=== PATIENT | male | born 1985 | race Caucasian/White ===

== ENCOUNTER 2018-12-07 23:41 | Emergency (ER) | payer BC ==
[2018-12-07 23:45] VITALS: TEMP 98.6
--- NOTE | 2018-12-08 00:22 | XR ---
EXAM: XR Chest, 2 Views CLINICAL HISTORY: Pain TECHNIQUE: Frontal and lateral views of the chest. COMPARISON: 01/08/16 FINDINGS: Lungs: Unremarkable. No consolidation. Pleural space: Unremarkable. No pneumothorax. Heart: Unremarkable. No cardiomegaly. Mediastinum: Unremarkable. Bones/joints: Unremarkable. IMPRESSION: No acute findings or substantial change
[2018-12-08 00:47] VITALS: BP 122/94; PULSE 78; RESP 16
--- NOTE | 2018-12-08 00:50 | ED ---
SOB HPI - General Chief Complaint: Shortness of Breath Stated Complaint: WILLIAM Time Seen by Provider: 12/07/18 23:48 Source: patient Mode of arrival: ambulatory Limitations: no limitations - History of Present Illness Initial Comments: 33-year-old male patient presents to the emergency department today for evaluation of shortness of breath and cough as been present for the last year. Patient states this worsens when he is at work and seems to resolve when he is at home. Patient denies any fevers or chills with this. Denies any hemoptysis. States he does occasionally cough up yellow sputum. 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 Patient states he does have an appointment with his physician on Friday but needed a work note so he presented here for evaluation. Patient denies any recent rash, chest pain, abdominal pain, nausea, vomiting, diarrhea, constipation, back pain, numbness, tingling, dizziness, weakness, hematuria, dysuria, urinary urgency, urinary frequency, headache, visual changes, or any other complaints. - Related Data Home Medications Medication Instructions Recorded Confirmed Lisinopril [Zestril] 10 mg PO DAILY 07/29/14 07/29/14 Previous Rx's Medication Instructions Recorded Albuterol Sulfate [Proair Hfa] 1 - 2 puff INHALATION Q6HR PRN #1 12/08/18 inhaler methylPREDNISolone [Medrol Dose 4 mg PO DIRECTED #1 pack 12/08/18 Pack] Allergies Allergy/AdvReac Type Severity Reaction Status Date / Time No Known Allergies Allergy Verified 12/07/18 23:45 Review of Systems ROS Statement: Those systems with pertinent positive or pertinent negative responses have been documented in the HPI. ROS Other: All systems not noted in ROS Statement are negative. Past Medical History Past Medical History: Hypertension Additional Past Medical History / Comment(s): "breathing trouble" History of Any Multi-Drug Resistant Organisms: None Reported Past Surgical History: No Surgical Hx Reported Past Psychological History: No Psychological Hx Reported Smoking Status: Never smoker Past Alcohol Use History: Occasional Past Drug Use History: None Reported General Exam Limitations: no limitations General appearance: alert, in no apparent distress, other (Physical well- developed, well-nourished adult male patient in no acute distress. Vital signs upon presentation are temperature 98.6F, pulse 79, respirations 22, blood pressure 158/104, pulse ox 98% on room air.) Eye exam: Present: normal appearance, PERRL, EOMI. Absent: scleral icterus, conjunctival injection, periorbital swelling ENT exam: Present: normal exam, normal oropharynx, mucous membranes moist Respiratory exam: Present: normal lung sounds bilaterally. Absent: respiratory distress, wheezes, rales, rhonchi, stridor Cardiovascular Exam: Present: regular rate, normal rhythm, normal heart sounds. Absent: systolic murmur, diastolic murmur, rubs, gallop, clicks Neurological exam: Present: alert, oriented X3, CN II-XII intact Psychiatric exam: Present: normal affect, normal mood Skin exam: Present: warm, dry, intact, normal color. Absent: rash Course Vital Signs 12/07/18 12/08/18 23:41 00:46 Temperature 98.6 F Pulse Rate 79 78 Respiratory 22 16 Rate Blood Pressure 158/104 122/94 O2 Sat by Pulse 98 97 Oximetry Medical Decision Making - Medical Decision Making 33-year-old male patient presents to the emergency department today for evaluation of shortness of breath and cough that has been going on for one year. Patient states this seems to worsen when he is at work and then improves when he is at home. Physical examination is unremarkable. Lungs are clear to auscultation with good air movement. No wheezing. Vital signs are stable with good oxygen saturation. Chest x-ray showed no acute cardio pulmonary process. EKG showed normal sinus rhythm. I did discuss findings and results with the patient. We did discuss bronchitis as a cause for her symptoms. He'll be started on a Medrol Dosepak and given Pro Air inhaler. He is instructed to f ollow-up with his primary care physician as he has planned on Friday. Return parameters discussed in detail. He verbalizes understanding and agrees with this plan. - EKG Data -: EKG Interpreted by Me EKG Comments: EKG obtained at 00 45 shows normal sinus rhythm with a ventricular rate of 82, RI interval 146, QRS duration 96, QT 352, QTc 411. No evidence of ST elevation or depression. - Radiology Data Radiology results: report reviewed, image reviewed Two-view x-ray of the chest is obtained. Report was reviewed in its entirety. Impression by Dr. Aguirre shows no acute findings or substantial change. Disposition Clinical Impression: Bronchitis Disposition: HOME SELF-CARE Condition: Good Instructions (If sedation given, give patient instructions): Chronic Bronchitis (ED) Additional Instructions: Follow up with your primary care physician for recheck in 1-2 days. Return to the emergency department immediately for any new, worsening, or concerning symptoms. Prescriptions: methylPREDNISolone [Medrol Dose Pack] 4 mg PO DIRECTED #1 pack Albuterol Sulfate [Proair Hfa] 1 - 2 puff INHALATION Q6HR PRN #1 inhaler PRN Reason: Shortness Of Breath Is patient prescribed a controlled substance at d/c from ED?: No Referrals: Misti Wallace DO [Primary Care Provider] - 1-2 days Time of Disposition: 00:50
== END 2018-12-08 00:55 | disposition home or self-care (01) ==
LOC: EC 23:41
DX: J40 Bronchitis, not specified as acute or chronic (principal); I10 Essential (primary) hypertension; Z79.899 Other long term (current) drug therapy
CPT/HCPCS: 71046; 93005; 99285

== ENCOUNTER 2021-08-09 14:42 | Emergency (ER) | payer BC, OTHER ==
[2021-08-09 14:54] VITALS: RESP 18; TEMP 97.5
[2021-08-09] MEDS ORDERED: KETOROLAC 15 MG/ML 1 ML VIAL IVP STA (15:09)
--- NOTE | 2021-08-09 15:12 | ED ---
Chest Pain HPI - General Chief Complaint: Chest Pain Stated Complaint: Chest Pain Time Seen by Provider: 08/09/21 14:54 Source: patient Mode of arrival: ambulatory Limitations: no limitations - History of Present Illness Initial Comments: 35-year-old male with a benign history but a positive family history of heart disease who states 2 weeks ago he started developing upper chest pain pain between her shoulder blades he states that sharp in nature 9-10/10 severity is constant sometimes gets worse with certain movements but no overt fevers chills nausea vomiting sweats no palpitations no overt radiation other than that mentioned above no cough no phlegm production. He states he says quite a bit it happened while he was sitting. Because his family history he did follow-up with the clinic who sent him here for further evaluation. No other current complaints or modifying factors MD Complaint: chest pain - Related Data Home Medications Medication Instructions Recorded Confirmed Rosuvastatin [Crestor] 10 mg PO DAILY 08/09/21 08/09/21 Semaglutide [Ozempic] 0.25 mg SQ Q7D 08/09/21 08/09/21 amLODIPine BESYLATE/BENAZEPRIL 1 cap PO DAILY 08/09/21 08/09/21 [amLODIPine BESYLATE/BENAZEPRIL 5-10 MG] Previous Rx's Medication Instructions Recorded Cyclobenzaprine [Flexeril] 10 mg PO TID #14 tab 08/09/21 Ibuprofen 800 mg PO Q6HR PRN #20 tablet 08/09/21 Allergies Allergy/AdvReac Type Severity Reaction Status Date / Time No Known Allergies Allergy Verified 08/09/21 16:01 Review of Systems ROS Statement: Those systems with pertinent positive or pertinent negative responses have been documented in the HPI. ROS Other: All systems not noted in ROS Statement are negative. EKG Findings - EKG Results: EKG: interpreted by DUSTIN, sinus rhythm (Sinus rhythm 81. Interval 148 QRS duration 94 QT since QTC 358/4:[address] configuration consistent with early repolarization) Past Medical History Past Medical History: Hypertension Additional Past Medical History / Comment(s): "breathing trouble" History of Any Multi-Drug Resistant Organisms: None Reported Past Surgical History: No Surgical Hx Reported Past Psychological History: No Psychological Hx Reported Past Alcohol Use History: Occasional Past Drug Use History: None Reported General Exam - General Exam Comments Initial Comments: This is a well-developed well-nourished awake alert oriented 3 male Limitations: no limitations General appearance: alert, in no apparent distress Head exam: Present: atraumatic, normocephalic, normal inspection Eye exam: Present: normal appearance, PERRL, EOMI. Absent: scleral icterus, conjunctival injection, periorbital swelling ENT exam: Present: normal exam, mucous membranes moist Neck exam: Present: normal inspection, full ROM, other. Absent: tenderness, meningismus, lymphadenopathy Respiratory exam: Present: normal lung sounds bilaterally. Absent: respiratory distress, wheezes, rales, rhonchi, stridor, chest wall tenderness (No stridor JVD or bruits) Cardiovascular Exam: Present: regular rate, normal rhythm, normal heart sounds. Absent: systolic murmur, diastolic murmur, rubs, gallop, clicks GI/Abdominal exam: Present: soft, normal bowel sounds. Absent: distended, te nderness, guarding, rebound, rigid, bruit, pulsatile mass Extremities exam: Present: normal inspection, full ROM, normal capillary refill. Absent: tenderness, pedal edema, joint swelling, calf tenderness Back exam: Present: normal inspection Neurological exam: Present: alert, oriented X3, CN II-XII intact Psychiatric exam: Present: normal affect, normal mood Skin exam: Present: warm, dry, intact, normal color. Absent: rash Course Vital Signs 08/09/21 08/09/21 14:49 15:53 Temperature 97.5 F L Pulse Rate 79 82 Respiratory 18 18 Rate Blood Pressure 168/124 141/73 O2 Sat by Pulse 99 97 Oximetry Chest Pain MDM - MDM Imaging reviewed no acute findings. The patient is feeling improved the presentation appears be consistent with musculoskeletal pain in the records were all within normal limits his pain did improve after Toradol. He'll be discharged on NSAIDs as well as muscle relaxers he is a follow-up with Dr. Munguia and return when necessary I would recommend an outpatient stress test. Disposition Clinical Impression: Chest wall syndrome Disposition: HOME SELF-CARE Condition: Good Instructions (If sedation given, give patient instructions): Chest Wall Pain (ED) Additional Instructions: Recommended outpatient stress test that can be set up by her doctor Prescriptions: Cyclobenzaprine [Flexeril] 10 mg PO TID #14 tab Ibuprofen 800 mg PO Q6HR PRN #20 tablet PRN Reason: Pain Is patient prescribed a controlled substance at d/c from ED?: No Referrals: Gonzalo Munguia MD [Primary Care Provider] - 1-2 days
[2021-08-09 15:27] LABS: Basophils # (A) 0.1 k/uL (0-0.2); Basophils % (A) 1 %; Eosinophils # (A) 0.2 k/uL (0-0.7); Eosinophils % (A) 2 %; HCT 44.8 % (39.0-53.0); HGB 15.3 gm/dL (13.0-17.5); Lymphocytes # (A) 2.4 k/uL (1.0-4.8); Lymphocytes % (A) 28 %; MCH 30.6 pg (25.0-35.0); MCHC 34.2 g/dL (31.0-37.0); MCV 89.7 fL (80.0-100.0); Mean Platelet Volume 7.7; Monocytes # (A) 0.5 k/uL (0-1.0); Monocytes % (A) 6 %; Neutrophils # (A) 5.2 k/uL (1.3-7.7); Neutrophils % (A) 61 %; Platelet Count 288 k/uL (150-450); RDW 12.6 % (11.5-15.5); WBC 8.6 k/uL (3.8-10.6)
--- NOTE | 2021-08-09 15:31 | XR ---
EXAMINATION TYPE: XR chest 2V DATE OF EXAM: 08/09/2021 COMPARISON: 12/08/2018 HISTORY: 35-year-old male with chest pain TECHNIQUE: PA and lateral views FINDINGS: Heart normal size. Aorta and pulmonary vasculature within normal limits. Some strandy atelectasis in the lower lungs. No consolidation or pleural effusion. IMPRESSION: No acute cardiopulmonary process.
[2021-08-09 15:35] LABS: ALT 65 U/L (4-49); AST 51 U/L (17-59); African American GFR (CKD) >90 (>60 ml/min/1.73 sqM); Albumin 4.3 g/dL (3.5-5.0); Alkaline Phosphatase 121 U/L (38-126); Anion Gap 9 mmol/L; Blood Urea Nitrogen 8 mg/dL (9-20); Calcium 9.5 mg/dL (8.4-10.2); Carbon Dioxide 26 mmol/L (22-30); Chloride 100 mmol/L (98-107); Glucose 241 mg/dL (74-99); Lipase 58 U/L (23-300); Magnesium 1.7 mg/dL (1.6-2.3); Non-African American GFR(CKD) >90 (>60 ml/min/1.73 sqM); Potassium 3.8 mmol/L (3.5-5.1); Sodium 135 mmol/L (137-145); Total Bilirubin 0.7 mg/dL (0.2-1.3); Total Protein 7.8 g/dL (6.3-8.2)
[2021-08-09 15:44] LABS: INR 0.9 (<1.2); Partial Thromboplastin Time 22.1 sec (22.0-30.0)
[2021-08-09 16:45] VITALS: PULSE 82
[2021-08-09 17:32] VITALS: BP 137/81
== END 2021-08-09 17:32 | disposition home or self-care (01) ==
LOC: EC 14:42
DX: R07.1 Chest pain on breathing (principal); I10 Essential (primary) hypertension; Z72.89 Other problems related to lifestyle
CPT/HCPCS: 36415; 93005; 85379; 83880; 80053; 83690; 83735; 84484; 85025; 85610; 85730; 71046; 99285; 96374; J1885